=== PATIENT | male | born 1965 | race Caucasian/White ===

== ENCOUNTER 2024-07-07 09:55 | Emergency (ER) | payer OTHER ==
[2024-07-07] MEDS ORDERED: CYCLOBENZAPRINE 10 MG TAB ONE (10:17)
[2024-07-07] MEDS ORDERED: HYDROCODONE/APAP 5/325 MG TAB ONE (10:17)
[2024-07-07] MEDS ORDERED: KETOROLAC 30 MG/ML INJ ONE (10:17)
[2024-07-07] MEDS ORDERED: MORPHINE 4 MG/ML SYR ONE (11:14)
[2024-07-07] MEDS ORDERED: ONDANSETRON 4 MG/2 ML VIAL ONE (11:14)
[2024-07-07] MEDS ORDERED: METHYLPREDNISOLONE 125 MG INJ ONE (11:33)
[2024-07-07] MEDS ORDERED: FENTANYL CITR 100 MCG/2 ML ONE (12:12)
[2024-07-07] MEDS ORDERED: HYDROMORPHONE HCL 1 MG/ML INJ ONE (12:49)
--- NOTE | 2024-07-07 14:09 | RAD REPORT ---
EXAMINATION: Spine Lumbar Wo Con CLINICAL INDICATION: Male, 58 years old. PAIN TECHNIQUE: Axial CT images were obtained through the lumbar spine in soft tissue and bone windows wit hout intravenous contrast. Coronal and Sagittal reformatted images were created from the data set. One or more of the following dose reduction techniques were used: Automated exposure control, adjustm ent of the mA and/ or kV according to patient size, and/or iterative reconstruction. Unless otherwise specified, incidental findings do not require dedicated imaging follow-up. [id number]. COMPARISON: No prior exam. FINDINGS: For purposes of this dictation, it is assumed that there are 5 non rib-bearing lumbar type vertebrae, and the most caudal fully segmented lumbar vertebra is labeled L5. ALIGNMENT: The lumbar spine demonstrates normal alignment without scoliosis or spondylolisthesis. BONES: No significant soft tissue abnormalities. No aggressive osseous lesions. DISCS: Moderate disc height loss. LEVELS: Facet degenerative changes as well as disc height loss continues to moderate left neural fora leihg narrowing at L5-S1. There is likely moderate to severe narrowing at L3-4 on the left as well. The right neural foramen are within normal limits. SOFT TISSUE: Presumed bone islands in the right aspect of the sacrum and at L4. IMPRESSION: No acute lumbar spine abnormalities. Degenerative changes as noted above.
--- NOTE | 2024-07-07 14:14 | ER ---
Nurse's Notes [facility] Name: Romeo Evans Jr Age: 58 yrs Sex: Male : 1965 Arrival Date: 07/07/2024 Time: 09:55 Bed 2 Private MD: Diagnosis: Lumbar stenosis;Radiculopathy, lumbar region;Sciatica, left side Presentation: 07/07 10:04 Chief complaint: Patient states: Severe L leg pain started Monday. Fell off bed trying ll1 to get up today. Coronavirus screen: Client denies travel out of the [place] in the last 14 days. At this time, the client does not indicate any symptoms associated with coronavirus-19. Ebola Screen: Patient denies travel to an Ebola-affected area in the 21 days before illness onset. Initial Sepsis Screen: Does the patient meet any 2 criteria? No. Patient's initial sepsis screen is negative. Does the patient have a suspected source of infection? No. Patient's initial sepsis screen is negative. Risk Assessment: Do you want to hurt yourself or someone else? Patient reports no desire to harm self or others. Onset of symptoms was July 05, 2024. 10:04 Method Of Arrival: Wheelchair ll1 10:04 Acuity: DEVANTE 3 ll1 Triage Assessment: 10:05 General: Appears distressed, uncomfortable, Behavior is calm, cooperative, appropriate ll1 for age. Pain: Complains of pain in left leg. Musculoskeletal: Reports pain in left leg. Historical: - Allergies: 10:03 No Known Allergies; ll1 - PMHx: 10:03 Hypertensive disorder; Hypercholesterolemia; ll1 - PSHx: 10:03 renal scope; ll1 - Immunization history:: Adult Immunizations up to date. - Social history:: Smoking status: Patient denies any tobacco usage or history of. Screenin:10 [facility] ED Fall Risk Assessment (Adult) History of falling in the last 3 months, aa5 including since admission Yes- single mechanical fall (1 pt) Confusion or Disorientation No (0 pts) Intoxicated or Sedated No (0 pts) Impaired Gait No (0 pts) Mobility Assist Device Used No (0 pt) Altered Elimination No (0 pt) Score/Fall Risk Level 0 - 2 = Low Risk Oriented to surroundings, Maintained a safe environment, Educated pt \\T\\ family on fall prevention, incl call for assistance when getting out of bed, Assessed \\T\\ reinforced patient's understanding of fall precautions. Abuse screen: Denies threats or abuse. Nutritional screening: No deficits noted. Tuberculosis screening: No symptoms or risk factors identified. 11:15 [facility] ED Fall Risk Assessment (Adult) History of falling in the last 3 months, aa5 including since admission Yes- single mechanical fall (1 pt) Confusion or Disorientation No (0 pts) Intoxicated or Sedated Yes (3 pts) Impaired Gait Yes (1 pt) Mobility Assist Device Used No (0 pt) Altered Elimination No (0 pt) Score/Fall Risk Level 3 or more points = High Risk Oriented to surroundings, Maintained a safe environment, Educated pt \\T\\ family on fall prevention, incl call for assistance when getting out of bed, Assessed \\T\\ reinforced patient's understanding of fall precautions, Hourly rounding (assess needs \\T\\ fall precautionary measures) done. Assessment: 10:10 General: Appears uncomfortable, Behavior is calm, cooperative. Pain: Complains of pain aa5 in left low back Pain radiates to left leg Pain currently is 10 out of 10 on a pain scale. Quality of pain is described as sharp, shooting, Pain began 2-3 days ago. worse today Is continuous, Aggravated by repositioning, Noted to be resistant to movement. Neuro: Level of Consciousness is awake, alert, obeys commands, Oriented to person, place, time, situation. Cardiovascular: Patient's skin is warm and dry. Respiratory: Airway is patent Respiratory effort is even, unlabored, Respiratory pattern is regular, symmetrical. GI: No signs and/or symptoms were reported involving the gastrointestinal system. : No signs and/or symptoms were reported regarding the genitourinary system. EENT: No signs and/or symptoms were reported regarding the EENT system. Derm: Skin is pink, warm \\T\\ dry. Musculoskeletal: Range of motion: intact in all extremities. 10:22 Reassessment: Patient is alert, oriented x 3, equal unlabored respirations, skin aa5 warm/dry/pink. 11:15 Reassessment: Patient is alert, oriented x 3, equal unlabored respirations, skin aa5 warm/dry/pink. Patient states symptoms have not improved. 11:32 Reassessment: Patient is alert, oriented x 3, equal unlabored respirations, skin aa5 warm/dry/pink. Patient states symptoms have not improved. Pt states he is unable to tolerate supine position for CT scan, provider aware. . 11:53 Reassessment: Patient is alert, oriented x 3, equal unlabored respirations, skin aa5 warm/dry/pink. Patient states symptoms have not improved. Pt states "just lying like this (on left side) it hurts a little but when I move it's a 10". . Pain: Pain currently is 2 out of 10 on a pain scale. at worst was 10 out of 10 on a pain scale. 12:41 Reassessment: Patient is alert, oriented x 3, equal unlabored respirations, skin aa5 warm/dry/pink. Patient states symptoms have not improved. Provider aware of pain upon movement. . 12:41 General: Appears comfortable. Pain: Noted to be resistant to movement. aa5 13:10 Reassessment: Patient is alert, oriented x 3, equal unlabored respirations, skin aa5 warm/dry/pink. salvage engineering technician at beside, pt states he is unable to tolerate supine position for CT, provider notified and now at bedside speaking to pt. . 13:44 Reassessment: Pt in CT . aa5 14:30 Reassessment: Pt requested CD of CT scan, awaiting for CD before d/c home. . aa5 14:30 Reassessment: Patient is alert, oriented x 3, equal unlabored respirations, skin aa5 warm/dry/pink. General: Appears comfortable. 14:50 Reassessment: Pt was transferring from bed to wheelchair for discharge home, pt fell aa5 onto left side and was able to assist himself falling using his hands and the bed. Negative head injury, negative LOC. No injuries noted or reported. Pt c/o numbness to left leg and denies increased pain post fall, provider was notified of fall and pt's c/o numbness to left leg. Pt was able to get himself up from floor onto wheelchair. . Vital Signs: 10:05 BP 113 / 71; Pulse 63; Resp 18; Temp 96.2(TE); Pulse Ox 92% on R/A; Weight 112.49 kg; ll1 Height 6 ft. 2 in. ; Pain 10/10; 12:15 BP 147 / 84; Pulse 58; Pulse Ox 96% on R/A; hb 14:00 BP 154 / 86; Pulse 66; Resp 16 S; Pulse Ox 96% on R/A; aa5 10:05 Body Mass Index 31.84 (112.49 kg, 187.96 cm) ll1 10:05 Pain Scale: Adult ll1 ED Course: 09:58 Patient arrived in ED. al6 09:58 Arm band placed on Patient placed in an exam room, on a stretcher. ll1 09:59 Kathe Morton FNP is PHCP. jh7 09:59 Erma Nixon MD is Attending Physician. 7 10:04 Triage completed. ll1 10:10 Patient has correct armband on for positive identification. Bed in low position. Call aa5 light in reach. Side rails up X2. Client placed on continuous cardiac and pulse oximetry monitoring. NIBP monitoring applied. traffic monitor specialist on. Pulse ox on. NIBP on. 10:15 Tata Hopkins, RN is Primary Nurse. aa5 11:15 Inserted saline lock: 22 gauge in right antecubital area, using aseptic technique. aa5 Flushed with 10 mL NS. 11:37 Radiology exam delayed due to Patient is unable to lay flat or still for exam at this sm9 time. Two attempts to get exam done. 13:45 No provider procedures requiring assistance completed. aa5 13:46 CT Lumbar Spine Wo Con In Process Unspecified. EDMS 14:50 IV discontinued, intact, bleeding controlled, No redness/swelling at site. Pressure aa5 dressing applied. Administered Medications: 10:22 Drug: HYDROcodone-acetaminophen PO 5 mg-325 mg 1 tabs PO once Route: PO; aa5 11:00 Follow up: Response: No adverse reaction aa5 10:22 Drug: Ketorolac IM 60 mg IM once Route: IM; Site: right gluteus; aa5 10:30 Follow up: Response: No adverse reaction aa5 10:23 Drug: Cyclobenzaprine PO 10 mg PO once Route: PO; aa5 11:00 Follow up: Response: No adverse reaction aa5 11:15 CANCELLED (Physician Discretion): morphine4 mg IM once aa5 11:15 CANCELLED (Physician Discretion): Ondansetron Oral Disintegrating Tablet 4 mg PO once aa5 11:15 Drug: morphine IVP or IV 4 mg IVP once over 4 mins Route: IVP; Infused Over: 4 mins; aa5 Site: right antecubital; 11:20 Follow up: Response: No adverse reaction aa5 11:15 Drug: Ondansetron IVP 4 mg IVP once; over 2 minutes Route: IVP; Site: right antecubital;aa5 11:20 Follow up: Response: No adverse reaction aa5 11:34 Drug: MethylPrednisoLONE IVP 125 mg IVP once Route: IVP; Site: right antecubital; aa5 11:40 Follow up: Response: No adverse reaction aa5 12:16 Drug: fentaNYL (PF) IVP 50 mcg IVP once Route: IVP; Site: right antecubital; aa5 12:20 Follow up: Response: No adverse reaction aa5 12:52 Drug: HYDROmorphone IVP 1 mg IVP once Route: IVP; Site: right antecubital; aa5 13:10 Follow up: Response: No adverse reaction aa5 Medication: 12:52 VIS not applicable for this client. aa5 Outcome: 14:13 Discharge ordered by . kelsey 14:50 Discharged to home via wheelchair, with family, aa5 14:50 Condition: stable 14:50 Discharge instructions given to patient, Instructed on discharge instructions, follow up and referral plans. medication usage, Demonstrated understanding of instructions, follow-up care, medications, Prescriptions given X 2, 15:00 Patient left the ED. eb Signatures: Dispatcher [employer] EDMS Tata Hopkins RN RN aa5 June Cardona RN RN hb Botello, Elizabeth Jose Ramon Campbell RN RN ll1 Kathe Morton FNP FNP 7 Jaycee Castro 9 Lena Yee6 Corrections: (The following items were deleted from the chart) 10:20 10:04 Chief complaint: Patient states: Severe L leg pain started Monday. Fell off bed ll1 trying to get up today. ll1 10:20 10:05 Resp 18bpm; Temp 96.2F Temporal; ll1 ll1 16:58 14:50 Reassessment: Pt was transferring from bed to wheelchair for discharge home, pt aa5 fell onto left side and was able to assist himself falling using his hands and the bed. Negative head injury, negative LOC. No injuries noted or reported. Pt c/o numbness to left leg and denies increased pain post fall, provider was notified of fall and pt's c/o numbness to left leg. . aa5 16:58 14:50 Reassessment: Pt was transferring from bed to wheelchair for discharge home, pt aa5 fell onto left side and was able to assist himself falling using his hands and the bed. Negative head injury, negative LOC. No injuries noted or reported. Pt c/o numbness to left leg and denies increased pain post fall, provider was notified of fall and pt's c/o numbness to left leg. . aa5
--- NOTE | 2024-07-07 14:14 | EDPHYS ---
Physician Documentation [facility] Name: Romeo Evans Jr Age: 58 yrs Sex: Male : 1965 Arrival Date: 07/07/2024 Time: 09:55 Bed 2 Private MD: ED Physician Erma Nixon HPI: 07/07 10:00 This 58 yrs old Male presents to ER via Wheelchair with complaints of Hip Pain, Leg 7 Pain. 10:00 58-year-old male with a past medical history of hypertension and HLD presents to the ER [facility] for left lower back, left hip, and left thigh pain since Monday. The patient reports that his job does require him to lift heavy at times but denies any known injury. He states that certain movements of his left leg, hip, and back causes severe pain. He reports that extension of his back and curling on his side with his legs bent partially relieve the pain. Loss of bowel/bladder, numbness, tingling, or any neurological symptoms. Denies taking any medication for pain relief.. Historical: - Allergies: 10:03 No Known Allergies; ll1 - PMHx: 10:03 Hypertensive disorder; Hypercholesterolemia; ll1 - PSHx: 10:03 renal scope; ll1 - Immunization history:: Adult Immunizations up to date. - Social history:: Smoking status: Patient denies any tobacco usage or history of. ROS: 10:00 Constitutional: Per HPI [facility] Exam: 10:00 Constitutional: This is a well developed, well nourished patient who is awake, alert, jh7 and in no acute distress. Head/Face: Normocephalic, atraumatic. Neck: Trachea midline, no thyromegaly or masses palpated, and no cervical lymphadenopathy. Supple, full range of motion without nuchal rigidity, or vertebral point tenderness. No Meningismus. Cardiovascular: Regular rate and rhythm with a normal S1 and S2. No gallops, murmurs, or rubs. Normal PMI, no JVD. No pulse deficits. Respiratory: Lungs have equal breath sounds bilaterally, clear to auscultation and percussion. No rales, rhonchi or wheezes noted. No increased work of breathing, no retractions or nasal flaring. Abdomen/GI: Soft, non-tender, with normal bowel sounds. No distension or tympany. No guarding or rebound. No evidence of tenderness throughout. Skin: Warm, dry with normal turgor. Normal color with no rashes, no lesions, and no evidence of cellulitis. MS/ Extremity: Pulses equal, no cyanosis. Neurovascular intact. Full, normal range of motion. Neuro: Awake and alert, GCS 15, oriented to person, place, time, and situation. Sensory grossly intact. 10:00 Back: ROM is painful, with rotation to the right, with rotation to the left, with flexion, CVA tenderness, is absent, vertebral tenderness, is not appreciated, muscle spasm, is appreciated in the left low back and left leg, Straight leg raises: left lower extremity illicits pain, Vital Signs: 10:05 BP 113 / 71; Pulse 63; Resp 18; Temp 96.2(TE); Pulse Ox 92% on R/A; Weight 112.49 kg; ll1 Height 6 ft. 2 in. ; Pain 10/10; 12:15 BP 147 / 84; Pulse 58; Pulse Ox 96% on R/A; hb 14:00 BP 154 / 86; Pulse 66; Resp 16 S; Pulse Ox 96% on R/A; aa5 10:05 Body Mass Index 31.84 (112.49 kg, 187.96 cm) ll1 10:05 Pain Scale: Adult ll1 MDM: 09:59 Medical Screening Exam initiated [facility] 13:00 ED course: Although the patient appeared calm and in no distress in the ER stretcher, [facility] he had great difficulty tolerating lying flat for CT scan. Multiple pain medications were given but the patient was still unable to lie flat. CT attempted multiple times with no success. Patient stable at this time and states that he probably will not be able to lie flat. Will order x-ray lumbar series instead.. 13:31 ED course: Patient notified the nurse that he would like to attempt CT scan 1 last [address] scan ordered.. 14:00 Differential diagnosis: arthritis, strain, Herniated disc, lumbar stenosis, 7 nephrolithiasis. 14:12 Data reviewed: vital signs, nurses notes, radiologic studies, CT scan. I considered the [facility] following discharge prescriptions or medication management in the emergency department Medications were administered in the Emergency Department. See MAR. Independent interpretation of the following test(s) in the Emergency Department CT Scan: My interpretation is No acute findings. Historians other than the Patient: Daughter/Son: Son. Care significantly affected by the following chronic conditions: Hypertension. Counseling: I had a detailed discussion with the patient and/or guardian regarding the historical points, exam findings, and any diagnostic results supporting the discharge/admit diagnosis, the need for outpatient follow up, ortho/spine. Response to treatment: the patient's symptoms have mildly improved after treatment. ED course: Informed the patient that the CT scan showed lumbar stenosis. Strongly advised that he follow-up with Ortho/spine for outpatient MRI. Patient denied any leg weakness, numbness/tingling, or any concerning neurological symptoms throughout his stay. Strongly suspect herniated disc based on clinical presentation. Encouraged to return to the ER with any new worrisome symptoms.. 07/07 13:31 Order name: CT Lumbar Spine Wo Con; Complete Time: 14:12 jh7 Administered Medications: 10:22 Drug: HYDROcodone-acetaminophen PO 5 mg-325 mg 1 tabs PO once Route: PO; aa5 11:00 Follow up: Response: No adverse reaction aa5 10:22 Drug: Ketorolac IM 60 mg IM once Route: IM; Site: right gluteus; aa5 10:30 Follow up: Response: No adverse reaction aa5 10:23 Drug: Cyclobenzaprine PO 10 mg PO once Route: PO; aa5 11:00 Follow up: Response: No adverse reaction aa5 11:15 CANCELLED (Physician Discretion): morphine4 mg IM once aa5 11:15 CANCELLED (Physician Discretion): Ondansetron Oral Disintegrating Tablet 4 mg PO once aa5 11:15 Drug: morphine IVP or IV 4 mg IVP once over 4 mins Route: IVP; Infused Over: 4 mins; aa5 Site: right antecubital; 11:20 Follow up: Response: No adverse reaction aa5 11:15 Drug: Ondansetron IVP 4 mg IVP once; over 2 minutes Route: IVP; Site: right antecubital;aa5 11:20 Follow up: Response: No adverse reaction aa5 11:34 Drug: MethylPrednisoLONE IVP 125 mg IVP once Route: IVP; Site: right antecubital; aa5 11:40 Follow up: Response: No adverse reaction aa5 12:16 Drug: fentaNYL (PF) IVP 50 mcg IVP once Route: IVP; Site: right antecubital; aa5 12:20 Follow up: Response: No adverse reaction aa5 12:52 Drug: HYDROmorphone IVP 1 mg IVP once Route: IVP; Site: right antecubital; aa5 13:10 Follow up: Response: No adverse reaction aa5 Disposition Summary: 07/07/24 14:13 Discharge Ordered Notes: Location: Home [facility] Problem: new [facility] Symptoms: are unchanged [facility] Condition: Stable [facility] Diagnosis - Lumbar stenosis [facility] - Radiculopathy, lumbar region [facility] - Sciatica, left side [facility] Followup: [facility] - With: Private Physician - When: 2 - 3 days - Reason: Recheck today's complaints Discharge Instructions: - Discharge Summary Sheet [facility] - Lumbosacral Radiculopathy [facility] - Sciatica [facility] - Radicular Pain [facility] Forms: - Work release form eb - Medication Reconciliation Form [facility] - Patient Portal Instructions [facility] - Leadership Thank You Letter [facility] Prescriptions: - Naprosyn 500 mg Oral Tablet - take 1 tablet ORAL route 2 times per day take with food; 30 tablet; Refills: 0, [facility] Product Selection Permitted - Zanaflex 4 mg Oral Tablet - take 1 tablet ORAL route every 8 hours As needed; 20 tablet; Refills: 0, [facility] Product Selection Permitted Signatures: Dispatcher [employer] EDTata Aguilar, RN RN aa5 Jose Ramon Campbell RN RN ll1 Kathe Morton, INVESTMENT BANKER INVESTMENT BANKER [facility] Corrections: (The following items were deleted from the chart) 10:07 10:07 Spine Lumbar Wo Con+CT.RAD.BRZ ordered. EDOK EDMS 11:15 10:57 morphine IM 4 mg IM once ordered. [facility] aa5 11:15 10:57 Ondansetron Oral Disintegrating Tablet Oral Disintegrating Tablet 4 mg PO once aa5 ordered. 7 11:15 11:14 Ondansetron Oral Disintegrating Tablet Oral Disintegrating Tablet 4 mg PO once aa5 ordered. aa5 11:15 11:14 morphine IM 4 mg IM once ordered. 5 aa5 13:12 13:12 Lumbar Spine 3 Views+RAD.RAD.BRZ ordered. EDOK EDMS 15:23 15:21 ED course: Although the patient appeared calm and in no distress in the ER jh7 stretcher, he had great difficulty tolerating lying flat for CT scan. Multiple pain medications were given but the patient was still unable to lie flat. Patient stable at this time and states that he probably will not be able to lie flat. Will order x-ray lumbar series instead.. [facility]
[2024-07-07 15:14] VITALS: TEMP 96.2
[2024-07-07 15:19] VITALS: BP 147/84; O2SAT 96
== END 2024-07-07 15:00 | disposition home or self-care (01) ==
LOC: ER 09:55
DX: M48.061 Spinal stenosis, lumbar region without neurogenic claudication (principal); M54.16 Radiculopathy, lumbar region; M54.32 Sciatica, left side
CPT/HCPCS: 72131; 96375; 96372; 96374; 99285; J3010; J1171; J2919; J2405